=== PATIENT | female | born 1940 | race Caucasian/White ===

== ENCOUNTER 2017-10-21 17:59 | Emergency (ER) | payer MEDICARE, MEDICAID ==
--- NOTE | 2017-10-21 18:50 | EDM.PDOC ---
ED HPI GENERAL MEDICAL PROBLEM - General Stated Complaint: FALL Time Seen by Provider: 10/21/17 17:59 Source of Information: Reports: Patient, Family (son) History Limitations: Reports: No Limitations - History of Present Illness INITIAL COMMENTS - FREE TEXT/NARRATIVE: 77 y.o.w.f came to the ed after she fell onto her right knee. She noticed some swelling and was concerned she has a "blood clot:" in her right knee. Pt is able to walk well, has FROM of all her extremities. She has varicose vein visible at her right ant knee. No pain, no SOB no swelling of her calf or thigh. No open wound. No N/V/D por dizziness or any other acute medical issues. BP 153/65 RR 18 pulse ox 100% Pulse 77 Temp 36.8 Onset Date: 10/21/17 Onset Time: 17:00 Duration: Hour(s): Location: Reports: Lower Extremity, Right Quality: Reports: Ache, Dull Severity: Mild Improves with: Reports: Rest Worsens with: Reports: Movement Context: Reports: Trauma Associated Symptoms: Reports: No Other Symptoms - Related Data Allergies Allergy/AdvReac Type Severity Reaction Status Date / Time No Known Allergies Allergy Verified 10/21/17 19:58 Home Meds: Home Meds Albuterol Sulfate [Albuterol Sulfate HFA] 2 puff IH QID PRN 05/10/14 [History] Albuterol/Ipratropium [DuoNeb 3.0-0.5 MG/3 ML] 3 ml IH Q4H PRN 05/10/14 [History ] Citalopram Hydrobromide [Celexa] 40 mg PO DAILY 05/10/14 [History] Lisinopril [Prinivil] 40 mg PO DAILY 05/10/14 [History] Multivitamins w-Iron/Ca/FA/Min [Thera M Plus] 1 tab PO DAILY 05/10/14 [History] Theophylline [Theophylline Anhydrous] 400 mg PO DAILY 05/10/14 [History] Theophylline Anhydrous 200 mg PO BEDTIME 07/10/14 [History] Montelukast [Singulair] 10 mg PO BEDTIME 09/28/15 [History] amLODIPine [Norvasc] 10 mg PO DAILY 10/25/15 [History] Past Medical History HEENT History: Reports: Cataract, Impaired Vision, Other (See Below) Other HEENT History: RETINOPATHY Cardiovascular History: Reports: Heart Failure, High Cholesterol, Hypertension Respiratory History: Reports: Asthma, COPD Gastrointestinal History: Reports: GERD Genitourinary History: Reports: Other (See Below) 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 Dermatologic History: Reports: Eczema, Other (See Below) Other Dermatologic History: HERPES ZOSTER TREATED . 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 - Infectious Disease History Infectious Disease History: Reports: Chicken Pox, Mumps Other Infectious Disease History: HAD SHINGLES IN THE PAST. - Past Surgical History HEENT Surgical History: Reports: Adenoidectomy, Cataract Surgery, Tonsillectomy Musculoskeletal Surgical History: Reports: Arthroscopic Knee, Hip Replacement Social & Family History - Caffeine Use Caffeine Use: Reports: Coffee Review of Systems - Review of Systems Review Of Systems: See Below Constitutional: Reports: No Symptoms Eyes: Reports: No Symptoms Ears: Reports: No Symptoms Nose: Reports: No Symptoms Mouth/Throat: Reports: No Symptoms Respiratory: Reports: No Symptoms Cardiovascular: Reports: No Symptoms GI/Abdominal: Reports: No Symptoms Genitourinary: Reports: No Symptoms Musculoskeletal: Reports: Joint Swelling (right ant knee) Skin: Reports: Lumps ( right knee) Neurological: Reports: No Symptoms Psychiatric: Reports: No Symptoms ED EXAM, GENERAL - Physical Exam Exam: See Below Exam Limited By: No Limitations General Appearance: Alert, WD/WN, Mild Distress Eye Exam: Bilateral Eye: Normal Inspection Ears: Normal External Exam Ear Exam: Bilateral Ear: Auricle Normal Nose: Normal Inspection, Normal Mucosa, No Blood Throat/Mouth: Normal Inspection, Normal Lips, Normal Gums, Normal Oropharynx, Normal Voice, No Airway Compromise Head: Atraumatic, Normocephalic Neck: Normal Inspection, Supple, Non-Tender, Full Range of Motion Respiratory/Chest: No Respiratory Distress, Lungs Clear, Normal Breath Sounds, No Accessory Muscle Use, Chest Non-Tender Cardiovascular: Normal Peripheral Pulses, Regular Rate, Rhythm, No Edema, No Gallop, No JVD, No Murmur, No Rub Peripheral Pulses: 1+: Radial (R) GI/Abdominal: Normal Bowel Sounds, Soft, Non-Tender, No Organomegaly, No Distention, No Abnormal Bruit, No Mass, Pelvis Stable (Female) Exam: Deferred Rectal (Female) Exam: Deferred Back Exam: Normal Inspection, Full Range of Motion Extremities: Normal Range of Motion, Non-Tender, Normal Capillary Refill, Other (ant right knee swelling ) Neurological: Alert, Oriented, CN II-XII Intact, Normal Cognition, Normal Gait, No Motor/Sensory Deficits Psychiatric: Normal Affect, Normal Mood Skin Exam: Warm, Dry, Intact, Normal Color Lymphatic: No Adenopathy Course - Vital Signs Text/Narrative:: 77 y.o.w.f came to the ed after she fell onto her right knee. She noticed some swelling and was concerned she has a "blood clot:" in her right knee. Pt is able to walk well, has FROM of all her extremities. She has varicose vein visible at her right ant knee. No pain, no SOB no swelling of her calf or thigh. No open wound. No N/V/D por dizziness or any other acute medical issues. BP 153/65 RR 18 pulse ox 100% Pulse 77 Temp 36.8 PE: WNWD W F with right ant knee swelling, walks well Imaging: Not indicated Impression; Right knee sprain, SQ hematoma right knee Tx: Ice, AC wrap Reexam: Improved Plan: D/C with instructions Last Recorded V/S: Last Vital Signs Temp 36.8 C 10/21/17 19:00 Pulse 70 10/21/17 19:00 Resp 17 10/21/17 19:00 BP 156/71 H 10/21/17 19:00 Pulse Ox 98 10/21/17 19:00 Departure - Departure Time of Disposition: 18:51 Disposition: Home, Self-Care 01 Condition: Good Clinical Impression: Traumatic hematoma of right knee Qualifiers: Encounter type: initial encounter Qualified Code(s): S80.01XA - Contusion of right knee, initial encounter - Discharge Information Instructions: Hematoma, [id number] Referrals: Jaime Soliman MD [Primary Care Provider] - Forms: ED Department Discharge Additional Instructions: Ice, rest and elevation, please apply pressure to the affected areas with an VIKY wrap during daytime, Motrin for pain, please f/u, come back if your symptoms get worse acutely
[2017-10-21 20:12] VITALS: BP 156/71
== END 2017-10-21 19:04 | disposition home or self-care (01) ==
LOC: FB.ED 17:59
DX: S83.91XA Sprain of unspecified site of right knee, initial encounter (principal); I11.0 Hypertensive heart disease with heart failure; I50.9 Heart failure, unspecified; Z79.899 Other long term (current) drug therapy; W19.XXXA Unspecified fall, initial encounter
CPT/HCPCS: 99283

== ENCOUNTER 2018-08-20 17:45 | Emergency (ER) | payer MEDICAID, MEDICARE ==
[2018-08-20] MEDS ORDERED: Sodium Chloride 0.9% 1,000 ML IV ONE (18:14)
[2018-08-20] MEDS ORDERED: Ondansetron 4 MG/2 ML SDV IVPUSH ONE (18:14)
--- NOTE | 2018-08-20 18:21 | EDM.PDOC ---
<Reed Morejon M - Last Filed: 08/20/18 18:52> ED HPI GENERAL MEDICAL PROBLEM - General Stated Complaint: POSSIBLE HEAT STROKE Time Seen by Provider: 08/20/18 17:45 Source of Information: Reports: Patient, Family History Limitations: Reports: No Limitations - History of Present Illness INITIAL COMMENTS - FREE TEXT/NARRATIVE: 78 y.o.w.f came 6 hours after she ate 2 hamburgers at noon with N/V and diarrhea with watery stool.No trauma, nobody else got sick. Pt has several BMs here in the ED. No CP or SOB. No F/C. Family is present. 88 126/62 Pulse ox 97% on RA Temp 97.3 RR 18 Pulse 88 Onset Date: 08/20/18 Onset Time: 18:00 Duration: Hour(s): Location: Reports: Abdomen Quality: Reports: Burning, Dull Severity: Moderate Improves with: Reports: Rest Worsens with: Reports: Movement Context: Reports: Other (pt ate 2 hamburgers at noon) Associated Symptoms: Reports: Loss of Appetite, Malaise, Nausea/Vomiting, Weakness - Related Data Allergies Allergy/AdvReac Type Severity Reaction Status Date / Time No Known Allergies Allergy Verified 08/20/18 19:23 Home Meds: Home Meds Albuterol Sulfate [Albuterol Sulfate HFA] 2 puff IH QID PRN 05/10/14 [History] Albuterol/Ipratropium [DuoNeb 3.0-0.5 MG/3 ML] 3 ml IH Q4H PRN 05/10/14 [History ] Citalopram Hydrobromide [Celexa] 40 mg PO DAILY 05/10/14 [History] Lisinopril [Prinivil] 40 mg PO DAILY 05/10/14 [History] Multivitamins w-Iron/Ca/FA/Min [Thera M Plus] 1 tab PO DAILY 05/10/14 [History] Theophylline [Theophylline Anhydrous] 400 mg PO DAILY 05/10/14 [History] Theophylline Anhydrous 200 mg PO BEDTIME 07/10/14 [History] Montelukast [Singulair] 10 mg PO BEDTIME 09/28/15 [History] amLODIPine [Norvasc] 10 mg PO DAILY 10/25/15 [History] Past Medical History HEENT History: Reports: Cataract, Impaired Vision, Other (See Below) Other HEENT History: RETINOPATHY Cardiovascular History: Reports: Heart Failure, High Cholesterol, Hypertension Respiratory History: Reports: Asthma, COPD Gastrointestinal History: Reports: GERD Genitourinary History: Reports: Other (See Below) 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 Dermatologic History: Reports: Eczema, Other (See Below) Other Dermatologic History: HERPES ZOSTER TREATED . 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 - Infectious Disease History Infectious Disease History: Reports: Chicken Pox, Mumps Other Infectious Disease History: HAD SHINGLES IN THE PAST. - Past Surgical History HEENT Surgical History: Reports: Adenoidectomy, Cataract Surgery, Tonsillectomy Musculoskeletal Surgical History: Reports: Arthroscopic Knee, Hip Replacement Social & Family History - Family History Family Medical History: Noncontributory - Caffeine Use Caffeine Use: Reports: Coffee ED ROS GENERAL - Review of Systems Review Of Systems: See Below Constitutional: Reports: Weakness, Decreased Appetite HEENT: Reports: No Symptoms Respiratory: Reports: No Symptoms Cardiovascular: Reports: No Symptoms Endocrine: Reports: No Symptoms GI/Abdominal: Reports: Abdominal Pain, Diarrhea, Nausea, Vomiting : Reports: Dysuria, Frequency, Urgency Musculoskeletal: Reports: No Symptoms Skin: Reports: No Symptoms Neurological: Reports: No Symptoms Psychiatric: Reports: No Symptoms Hematologic/Lymphatic: Reports: No Symptoms Immunologic: Reports: No Symptoms ED EXAM, GI/ABD - Physical Exam Exam: See Below Exam Limited By: No Limitations General Appearance: Alert, WD/WN, Moderate Distress Eyes: Bilateral: Normal Appearance Ears: Normal External Exam Nose: Normal Inspection Throat/Mouth: Normal Lips, Normal Voice, No Airway Compromise, Other (dry muco) Head: Atraumatic, Normocephalic Neck: Normal Inspection, Supple, Non-Tender, Full Range of Motion Respiratory/Chest: No Respiratory Distress, Lungs Clear, Normal Breath Sounds, No Accessory Muscle Use, Chest Non-Tender Cardiovascular: Normal Peripheral Pulses, Regular Rate, Rhythm, No Edema GI/Abdominal Exam: Normal Bowel Sounds, Soft, No Distention (Female) Exam: Deferred Rectal (Female) Exam: Deferred Back Exam: Normal Inspection, Full Range of Motion Extremities: Normal Inspection, Normal Range of Motion, Non-Tender Neurological: Alert, Oriented, CN II-XII Intact, Normal Cognition, Abnormal Gait (feels weak) Psychiatric: Normal Affect, Normal Mood Skin Exam: Warm, Dry, Intact, Normal Color, No Rash Lymphatic: No Adenopathy Course - Vital Signs Text/Narrative:: 78 y.o.w.f came 6 hours after she ate 2 hamburgers at noon with N/V and diarrhea with watery stool.No trauma, nobody else got sick. Pt has several BMs here in the ED. No CP or SOB. No F/C. Family is present. 88 126/62 Pulse ox 97% on RA Temp 97.3 RR 18 Pulse 88 PE: Thin 78 y.o.w.f with N/V/D, fet better after she had a BM and vomited Imaging: Not indicated Labs: CBC nl execpt WBC 13.3 BMP BUN 26 Cr 1.3 GFR 37 UA pending; LFTs elevated Impression: Gastroenteritis Viral vs food poisoning, Dehydration, CRI Tx: VIKTORIA Hebert Reexam: Pt is doing better 7.11 pm Pt was igned oiut to Dr. Irene due to shift changes, pending labs - Orders/Labs/Meds Orders: Active Orders 24 hr Category Date Time Status UA W/MICROSCOPIC [URIN] Stat Lab 08/20/18 18:15 Ordered UA W/O MICROSCOPIC [URIN] Stat Lab 08/20/18 18:13 Ordered Sodium Chloride 0.9% [Normal Saline] 1,000 ml Med 08/20/18 18:14 Active IV .BOLUS Sodium Chloride 0.9% [Saline Flush] Med 08/20/18 18:36 Active 10 ml FLUSH ASDIRECTED PRN Saline Lock Insert [OM.PC] Routine Oth 08/20/18 18:36 Ordered Medication Orders Sodium Chloride (Normal Saline) 1,000 mls @ 500 mls/hr IV .BOLUS ONE Stop: 08/20/18 20:13 Last Admin: 08/20/18 18:32 Dose: 500 mls/hr Sodium Chloride (Saline Flush) 10 ml FLUSH ASDIRECTED PRN PRN Reason: Keep Vein Open Last Admin: 08/20/18 18:37 Dose: 10 ml Admin: 08/20/18 18:36 Dose: 10 ml Labs: Laboratory Tests 08/20/18 08/20/18 08/20/18 Range/Units 18:17 18:17 18:17 WBC 13.1 H (4.5-12.0) X10-3/uL RBC 4.52 (3.23-5.20) x10(6)uL Hgb 14.1 (11.5-15.5) g/dL Hct 41.2 D (30.0-51.3) % MCV 91.1 (80-96) fL MCH 31.1 (27.7-33.6) pg MCHC 34.1 (32.2-35.4) g/dL RDW 13.8 (11.5-15.5) % Plt Count 329 (125-369) X10(3)uL MPV 8.5 (7.4-10.4) fL Add Manual Diff Yes Neutrophils % (Manual) 77 (46-82) % Band Neutrophils % 3 (0-6) % Lymphocytes % (Manual) 15 (13-37) % Monocytes % (Manual) 2 L (4-12) % Eosinophils % (Manual) 3 (0-5) % Sodium 138 (135-145) mmol/L Potassium 4.1 (3.5-5.3) mmol/L Chloride 101 (100-110) mmol/L Carbon Dioxide 26 (21-32) mmol/L BUN 26 H (7-18) mg/dL Creatinine 1.4 H (0.55-1.02) mg/dL Est Cr Clr Drug Dosing TNP Estimated GFR (MDRD) 36 L (>60) BUN/Creatinine Ratio 18.6 (9-20) Glucose 140 H (80-116) mg/dL Lactic Acid 1.9 (0.4-2.2) mmol/L Calcium 10.2 (8.6-10.2) mg/dL Magnesium 2.1 (1.8-2.5) mg/dL Total Bilirubin (0.1-1.3) mg/dL Direct Bilirubin (0.10-0.20) mg/dL AST (5-25) IU/L ALT (12-36) U/L Alkaline Phosphatase (56-112) IU/L Total Protein (6.0-8.0) g/dL Albumin (3.2-4.6) g/dL Amylase (25-115) U/L // Range/Units 18:17 WBC (4.5-12.0) X10-3/uL RBC (3.23-5.20) x10(6)uL Hgb (11.5-15.5) g/dL Hct (30.0-51.3) % MCV (80-96) fL MCH (27.7-33.6) pg MCHC (32.2-35.4) g/dL RDW (11.5-15.5) % Plt Count (125-369) X10(3)uL MPV (7.4-10.4) fL Add Manual Diff Neutrophils % (Manual) (46-82) % Band Neutrophils % (0-6) % Lymphocytes % (Manual) (13-37) % Monocytes % (Manual) (4-12) % Eosinophils % (Manual) (0-5) % Sodium (135-145) mmol/L Potassium (3.5-5.3) mmol/L Chloride (100-110) mmol/L Carbon Dioxide (21-32) mmol/L BUN (7-18) mg/dL Creatinine (0.55-1.02) mg/dL Est Cr Clr Drug Dosing Estimated GFR (MDRD) (>60) BUN/Creatinine Ratio (9-20) Glucose (80-116) mg/dL Lactic Acid (0.4-2.2) mmol/L Calcium (8.6-10.2) mg/dL Magnesium (1.8-2.5) mg/dL Total Bilirubin 0.6 (0.1-1.3) mg/dL Direct Bilirubin 0.15 (0.10-0.20) mg/dL AST 33 H (5-25) IU/L ALT 38 H (12-36) U/L Alkaline Phosphatase 209 H (56-112) IU/L Total Protein 8.2 H (6.0-8.0) g/dL Albumin 3.8 (3.2-4.6) g/dL Amylase 79 (25-115) U/L Meds: Medications Generic Name Dose Route Start Last Admin Trade Name Freq PRN Reason Stop Dose Admin Sodium Chloride 1,000 mls @ 500 mls/hr 08/20/18 18:14 08/20/18 18:32 Normal Saline IV 08/20/18 20:13 500 mls/hr .BOLUS ONE Administration Sodium Chloride 10 ml 08/20/18 18:36 08/20/18 18:37 Saline Flush FLUSH 10 ml ASDIRECTED PRN Administration Keep Vein Open Discontinued Medications Generic Name Dose Route Start Last Admin Trade Name Freq PRN Reason Stop Dose Admin Ondansetron HCl 8 mg 08/20/18 18:14 08/20/18 18:33 Zofran IVPUSH 08/20/18 18:15 8 mg ONETIME ONE Administration Departure - Departure Disposition: Home, Self-Care 01 Clinical Impression: Gastroenteritis - Discharge Information Referrals: Jaime Soliman MD [Primary Care Provider] - <Lisseth Irene - Last Filed: 08/20/18 19:42> Course - Vital Signs Text/Narrative:: pt feels comfortable now after fluids and zofran , labs shows mild elevation in WBC otherwise non-remarkable...pt likely has viral enteritis and stable for supportive mng and outpatient mng. will dc home with supportive care. Departure - Departure Time of Disposition: 19:40 - Problem List & Annotations (1) Gastroenteritis SNOMED Code(s): 69011589 Code(s): K52.9 - NONINFECTIVE GASTROENTERITIS AND COLITIS, UNSPECIFIED Status: Acute Current Visit: Yes
[2018-08-20] MEDS: Sodium Chloride 0.9% 10 ML Syringe FLUSH PRN ×2 (18:36→18:37)
[2018-08-21 02:14] VITALS: BP 113/81
== END 2018-08-20 20:37 | disposition home or self-care (01) ==
LOC: FB.ED 17:45
DX: K52.9 Noninfective gastroenteritis and colitis, unspecified (principal); I13.0 Hypertensive heart and chronic kidney disease with heart failure and stage 1 through stage 4 chronic kidney disease, or unspecified chronic kidney disease; N18.9 Chronic kidney disease, unspecified; I50.9 Heart failure, unspecified; Z79.899 Other long term (current) drug therapy
CPT/HCPCS: 36415; 80048; 80076; 82150; 83605; 83735; 85025; 96361; 96374; 99284; J2405; J7030

== ENCOUNTER 2023-01-17 20:13 | Emergency (ER) | payer MEDICARE ==
[2023-01-17] MEDS ORDERED: Acetaminophen/HYDROcodone 325-5 MG Tab PO ONE (20:14)
[2023-01-17] MEDS ORDERED: Albuterol/Ipratropium 3.0-0.5 MG/3 ML Neb Soln NEB ONE (20:38)
[2023-01-17] MEDS ORDERED: Diphtheria,Pertussis(Acell),Tetanus Vaccine 0.5 ML Syringe IM ONE (20:40)
[2023-01-17 20:48] LABS: BASOPHILS PERCENT AUTO 0.3 % (0.2-1.5); EOSINOPHILS PERCENT AUTO 0.3 % (0.6-8.1); HEMATOCRIT 41.2 % (34.2-48.2); HEMOGLOBIN 14.1 g/dL (11.4-15.5); LYMPHOCYTES ABSOLUTE AUTO 0.8 x10-3/uL (1.0-4.4); LYMPHOCYTES PERCENT AUTO 9.2 % (18.4-52.1); MEAN CORPUSCULAR HEMOGLOBIN 31.3 pg (23.9-33.9); MEAN CORPUSCULAR HGB CONC 34.3 g/dL (31.9-34.8); MEAN CORPUSCULAR VOLUME 91.3 fL (76.7-100.5); MEAN PLATELET VOLUME 8.8 fL (7.1-12.4); MONOCYTES ABSOLUTE AUTO 0.5 x10-3/uL (0.3-1.0); MONOCYTES PERCENT AUTO 5.1 % (4.4-15.7); NEUTROPHILS ABSOLUTE AUTO 7.6 x10-3/uL (1.5-6.3); NEUTROPHILS PERCENT AUTO 85.1 % (30.8-76.2); PLATELET COUNT,PLT 255 x10(3)uL (151-488); RED BLOOD CELL COUNT 4.51 x10(6)uL (3.60-5.20); RED CELL DISTRIBUTION WIDTH 13.7 % (12.3-16.5)
[2023-01-17 20:52] LABS: BASE EXCESS VENOUS,POC 0 mmol/L (-2 - 3+); PCO2 VENOUS,POC 39 mmHg (41-51); PH VENOUS,POC 7.41 pH Units (7.32-7.43)
[2023-01-17 20:52] LABS: CALCIUM 9.5 mg/dL (8.6-10.2); CARBON DIOXIDE,CO2 28 mmol/L (21-32); CHLORIDE,CL 102 mmol/L (100-110); CREATININE 0.8 mg/dL (0.55-1.02); ESTIMATED GFR 74 mL/min (>60); GLUCOSE RANDOM 135 mg/dL (80-116); SODIUM,NA 138 mmol/L (135-145)
[2023-01-17 20:58] LABS: A/G RATIO 0.8; ALANINE AMINOTRANSFERASE,ALT 28 U/L (12-36); ALBUMIN 3.3 g/dL (3.2-4.6); ALKALINE PHOSPHATASE 114 IU/L (56-112); ASPARTATE AMNIOTRANSFERASE,AST 26 IU/L (5-25); BILIRUBIN TOTAL 0.4 mg/dL (0.1-1.3); MAGNESIUM 1.8 mg/dL (1.8-2.5); PROTEIN TOTAL,TP 7.7 g/dL (6.0-8.0)
[2023-01-17 21:04] LABS: TROPONIN I 8.9 pg/mL (4.0-60.3)
[2023-01-17 21:26] LABS: BLOOD UREA NITROGEN,BUN 14 mg/dL (7-18)
[2023-01-17 21:27] LABS: BUN/CREATININE RATIO 17.5 (9-20)
[2023-01-17] MEDS ORDERED: Sodium Chloride 0.9% 10 ML Syringe FLUSH PRN (22:13)
[2023-01-17] MEDS ORDERED: Sodium Chloride 0.9% 500 ML IV ONE (22:13)
[2023-01-17] MEDS ORDERED: traMADol 50 MG Tab PO ONE (22:20)
[2023-01-17 22:27] LABS: BILIRUBIN,URINE NEGATIVE (NEGATIVE); GLUCOSE,URINE NORMAL (NORMAL); KETONES,URINE NEGATIVE (NEGATIVE); LEUKOCYTE ESTERASE,URINE LARGE (NEGATIVE); NITRITE,URINE NEGATIVE (NEGATIVE); OCCULT BLOOD,URINE NEGATIVE (NEGATIVE); PROTEIN,URINE NEGATIVE (NEGATIVE); UROBILINOGEN,URINE NORMAL (NEGATIVE)
[2023-01-17 22:33] LABS: APPEARANCE,URINE CLOUDY (CLEAR); BACTERIA,URINE FEW (NS); COLOR,URINE YELLOW (YELLOW); MUCUS,URINE FEW (NS); RBC,URINE 0-5 (0-5); SQUAMOUS EPITHELIAL CELLS,UR FEW (NS,R,O); WBC,URINE 40-50 (0-5)
[2023-01-17] MEDS ORDERED: Iopamidol 755 Mg/ML 100 ML Bottle IV SCH (23:30)
[2023-01-18] MEDS ORDERED: Doxycycline 100 MG Tab PO ONE (02:14)
== END 2023-01-18 02:51 | disposition home or self-care (01) ==
LOC: FB.ED 20:13
DX: R55 Syncope and collapse (principal); S01.512A Laceration without foreign body of oral cavity, initial encounter; S00.511A Abrasion of lip, initial encounter; I10 Essential (primary) hypertension; J44.9 Chronic obstructive pulmonary disease, unspecified; M19.90 Unspecified osteoarthritis, unspecified site; F17.210 Nicotine dependence, cigarettes, uncomplicated; Z79.899 Other long term (current) drug therapy; Z90.49 Acquired absence of other specified parts of digestive tract; W19.XXXA Unspecified fall, initial encounter
CPT/HCPCS: 29125; 36415; 70450; 71275; 72125; 73110-LT; 80053; 81001; 83735; 83880; 84484; 85025; 85379; 87086; 87088; 87186; 90471; 90715; 93005; 93010; 94640; 96360; 99284; 99284-25; A9270-GY; J7040; J7620; Q9967